=== PATIENT | male | born 2000 | race African-American/Black ===

== ENCOUNTER 2023-05-27 16:30 | Emergency (ER) | payer MEDICARE ==
[~2023-05-27] VITALS: Ht 185.4 cm; Wt 59.7 kg
[2023-05-27 16:49] VITALS: BP 120/61; PULSE 83; RESP 16; TEMP 98.1; O2SAT 100
== END 2023-05-27 19:49 | disposition left against medical advice (07) ==
LOC: ER 16:30
DX: Z53.21 Procedure and treatment not carried out due to patient leaving prior to being seen by health care provider (principal); I49.9 Cardiac arrhythmia, unspecified
CPT/HCPCS: 71045; 93005; 99281

== ENCOUNTER 2023-05-28 06:48 | Emergency (ER) | payer MEDICARE ==
[~2023-05-28] VITALS: Ht 182.9 cm; Wt 72.0 kg
[2023-05-28 06:54] VITALS: O2SAT 99
[2023-05-28 08:21] LABS: BASOPHILS % 1.3 % (0.0-2.0); EOSINOPHILS % 0.1 % (0.0-5.0); HEMATOCRIT. 31.1 % (42.0-52.0); HEMOGLOBIN. 11.1 g/dL (14.0-18.0); LYMPHOCYTES % 17.7 % (20.0-50.0); MEAN CORPUSCULAR HEMOGLOBIN 34.2 pg (28.0-32.0); MEAN CORPUSCULAR HGB CONC 35.8 g/dL (31.0-37.0); MEAN CORPUSCULAR VOLUME 95.6 fL (80.0-94.0); MEAN PLATELET VOLUME 8.1 fl (7.4-10.4); MONOCYTES % 10.1 % (2.0-8.0); NEUTROPHILS % 70.8 % (40.0-76.0); PLATELET 379 x1000/uL (130-400); RED BLOOD CELL COUNT 3.25 mill/uL (4.7-6.1); RED CELL DISTRIBUTION WIDTH 18.1 % (11.6-14.6); WHITE BLOOD COUNT 15.7 x1000/uL (4.5-11.0)
[2023-05-28 09:09] LABS: ALANINE AMINOTRANSFERASE < 7 IU/L (10-49); ASPARTATE AMINOTRANSFERASE 21 IU/L (<34); CALCIUM 10.3 mg/dL (8.7-10.4); CARBON DIOXIDE 24 mEq/L (21-32); CHLORIDE 106 mEq/L (98-107); CREATININE 0.6 mg/dL (0.6-1.3); GLUCOSE 101 mg/dL (70-105); POTASSIUM 3.6 mEq/L (3.5-5.1); SODIUM 139 mEq/L (136-145); UREA NITROGEN BLOOD 8 mg/dL (9-23)
[2023-05-28 09:13] LABS: ETHANOL BLOOD < 10 mg/dL (<10)
[2023-05-28 11:33] LABS: CLARITY URINE CLEAR (CLEAR); COLOR URINE YELLOW (YELLOW); GLUCOSE URINE NEGATIVE (NEGATIVE); KETONES URINE NEGATIVE (NEGATIVE); LEUKOCYTE ESTERASE URINE NEGATIVE (NEGATIVE); NITRITE URINE NEGATIVE (NEGATIVE); OCCULT BLOOD URINE NEGATIVE (NEGATIVE); PROTEIN URINE NEGATIVE (NEGATIVE); SPECIFIC GRAVITY URINE 1.008 (1.005-1.030)
[2023-05-28 11:35] VITALS: BP 127/64; PULSE 100; RESP 14; TEMP 98.1
[2023-05-28 13:09] LABS: *AMPHETAMINES SCREEN URINE NEGATIVE (NEGATIVE); *BARBITURATES SCREEN URINE NEGATIVE (NEGATIVE); *BENZODIAZEPINES SCREEN URINE NEGATIVE (NEGATIVE); *COCAINE SCREEN URINE NEGATIVE (NEGATIVE); CANNABINOID URINE SCREEN PRESUMPTIVE POSITIVE (NEGATIVE); ECSTASY MDMA SCREEN URINE NEGATIVE (NEGATIVE); METHADONE URINE SCREEN Neg (NEGATIVE); OPIATES URINE SCREEN NEGATIVE (NEGATIVE); PHENCYCLIDINE URINE SCREEN NEGATIVE (NEGATIVE)
== END 2023-05-28 11:42 ==
LOC: ER 06:48
DX: R56.9 Unspecified convulsions (principal); F41.9 Anxiety disorder, unspecified; J45.909 Unspecified asthma, uncomplicated; Z90.49 Acquired absence of other specified parts of digestive tract
CPT/HCPCS: 36415; 80053; 80305; 80320; 81003; 82962; 85025; 99283; G0480

== ENCOUNTER 2024-07-20 17:19 | Emergency (ER) | payer OTHER, MEDICARE, MEDICAID ==
[~2024-07-20] VITALS: Ht 177.8 cm; Wt 70.0 kg
[~2024-07-20 17:19] MED LIST: P20 MT
[2024-07-20 17:20] VITALS: BP 113/63; PULSE 99; RESP 18; TEMP 36.7; O2SAT 99
[2024-07-20 21:18] LABS: CLARITY URINE CLEAR (CLEAR); COLOR URINE YELLOW (YELLOW); GLUCOSE URINE NEGATIVE (NEGATIVE); KETONES URINE NEGATIVE (NEGATIVE); LEUKOCYTE ESTERASE URINE NEGATIVE (NEGATIVE); NITRITE URINE NEGATIVE (NEGATIVE); OCCULT BLOOD URINE NEGATIVE (NEGATIVE); PROTEIN URINE TRACE (NEGATIVE); SPECIFIC GRAVITY URINE 1.015 (1.005-1.030)
[2024-07-20 21:45] LABS: BACTERIA URINE TRACE
[2024-07-20 21:46] LABS: RBC URINE NONE SEEN /hpf (0-2); SQUAMOUS EPITHELIAL CELL URINE RARE /lpf (RARE/1+); WBC URINE NONE SEEN /hpf (0-2)
== END 2024-07-20 22:09 | disposition home or self-care (01) ==
LOC: ER 17:19
DX: R56.9 Unspecified convulsions (principal); Z86.73 Personal history of transient ischemic attack (TIA), and cerebral infarction without residual deficits; F41.9 Anxiety disorder, unspecified
CPT/HCPCS: 81003; 99283

== ENCOUNTER 2025-04-18 07:15 | Inpatient (IN) | payer OTHER, MEDICARE, MEDICAID ==
[~2025-04-18] VITALS: Ht 171.4 cm; Wt 59.5 kg
[2025-04-18 07:30] VITALS: O2SAT 99
[2025-04-18] MEDS: MIDAZOLAM HCL 2 MG/2 ML VIAL IM ONE (07:30)
[2025-04-18] MEDS: HALOPERIDOL LACTATE 5MG/ML VIAL IM ONE (07:30)
[2025-04-18] MEDS: OLANZAPINE 5MG TABLET ODT PO SCH (10:30)
[2025-04-18 12:45] LABS: CLARITY URINE CLEAR (CLEAR); COLOR URINE YELLOW (YELLOW); GLUCOSE URINE NEGATIVE (NEGATIVE); KETONES URINE NEGATIVE (NEGATIVE); LEUKOCYTE ESTERASE URINE NEGATIVE (NEGATIVE); NITRITE URINE NEGATIVE (NEGATIVE); OCCULT BLOOD URINE NEGATIVE (NEGATIVE); PH URINE 6.5 (4.5-8.0); PROTEIN URINE TRACE (NEGATIVE); SPECIFIC GRAVITY URINE 1.011 (1.005-1.030); UROBILINOGEN URINE 1.0 E.U./dL (0.2-1.0)
[2025-04-18 12:53] LABS: MEAN PLATELET VOLUME 8.6 fl (7.4-10.4); PLATELET 418 x1000/uL (130-400); RED BLOOD CELL COUNT 2.02 mill/uL (4.7-6.1); RED CELL DISTRIBUTION WIDTH 23.5 % (11.6-14.6)
[2025-04-18 13:03] LABS: HEMATOCRIT. 17.8 % (42.0-52.0); HEMOGLOBIN. 6.1 g/dL (14.0-18.0)
[2025-04-18 13:07] LABS: CREATININE 0.6 mg/dL (0.6-1.3); UREA NITROGEN BLOOD 12 mg/dL (9-23)
[2025-04-18 13:22] LABS: SQUAMOUS EPITHELIAL CELL URINE RARE /lpf (RARE/1+)
[2025-04-18 13:24] LABS: BACTERIA URINE NONE SEEN; RBC URINE NONE SEEN /hpf (0-2); WBC URINE 0-2 /hpf (0-2)
[2025-04-18 17:19] LABS: BAND% 1.0 % (1.0-6.0); LYMPHOCYTES % MANUAL 22.0 % (20.0-50.0); MONOCYTES % MANUAL 10.0 % (2.0-8.0); NEUTROPHILS % MANUAL 67.0 % (45.0-75.0); NUCLEATED RED BLOOD CELLS 2 /100 WBC; PLATELET ESTIMATE SLIGHTLY INCREASED
[2025-04-18 23:34] LABS: PLATELET 426 x1000/uL (130-400); RED BLOOD CELL COUNT 2.42 mill/uL (4.7-6.1); RED CELL DISTRIBUTION WIDTH 21.6 % (11.6-14.6)
[2025-04-19] MEDS ORDERED: ACETAMINOPHEN 325MG TABLET PO PRN
[2025-04-19] MEDS ORDERED: LORAZEPAM 2MG/ML UD SYRINGE IV PRN (00:30)
[2025-04-19] MEDS: SODIUM CHLORIDE 0.9% 1,000 ML IV SCH (01:28)
[2025-04-19 03:15] VITALS: BP 103/51; PULSE 83; RESP 18; TEMP 36.696
[2025-04-19 08:00] VITALS: BP 109/59; PULSE 77; RESP 18; TEMP 36.6; O2SAT 100
[2025-04-19] MEDS: PANTOPRAZOLE SODIUM 40 MG/VIAL IV SCH (09:23)
[2025-04-19 10:18] LABS: *AMPHETAMINES SCREEN URINE NEGATIVE (NEGATIVE)
[2025-04-19 10:19] LABS: *BARBITURATES SCREEN URINE NEGATIVE (NEGATIVE); *BENZODIAZEPINES SCREEN URINE PRESUMPTIVE POSITIVE (NEGATIVE); *COCAINE SCREEN URINE NEGATIVE (NEGATIVE); CANNABINOID URINE SCREEN PRESUMPTIVE POSITIVE (NEGATIVE); ECSTASY MDMA SCREEN URINE NEGATIVE (NEGATIVE); METHADONE URINE SCREEN NEGATIVE (NEGATIVE); OPIATES URINE SCREEN NEGATIVE (NEGATIVE); PHENCYCLIDINE URINE SCREEN NEGATIVE (NEGATIVE)
[2025-04-19 12:00] VITALS: BP 100/59; PULSE 74; RESP 18; TEMP 36.7; O2SAT 100
[2025-04-19 16:00] VITALS: BP 104/53; PULSE 59; RESP 18; TEMP 36.8; O2SAT 100
[2025-04-19] MEDS: ACETAMINOPHEN 325MG TABLET PO PRN (18:30)
[2025-04-19 20:00] VITALS: BP 105/58; PULSE 64; RESP 18; TEMP 36.8; O2SAT 98
[2025-04-20] VITALS: BP 133/75; PULSE 72; RESP 18; TEMP 36.4; O2SAT 100
[2025-04-20] MEDS: KETOROLAC 30MG/ML VIAL IV NR (00:45)
[2025-04-20 04:00] VITALS: BP 108/54; PULSE 68; RESP 18; TEMP 36.5; O2SAT 100
[2025-04-20 08:00] VITALS: BP 132/63; PULSE 70; RESP 18; TEMP 36.6; O2SAT 100
[2025-04-20 12:00] VITALS: BP 131/66; PULSE 67; RESP 18; TEMP 36.6; O2SAT 100
[2025-04-20 16:00] VITALS: BP 110/67; PULSE 72; RESP 20; TEMP 36.4; O2SAT 100
[2025-04-20 20:00] VITALS: BP 111/64; PULSE 75; RESP 18; TEMP 36.3; O2SAT 99
[2025-04-21] VITALS: BP 133/75; PULSE 68; RESP 18; TEMP 36.5; O2SAT 100
[2025-04-21 04:00] VITALS: BP 116/82; PULSE 82; RESP 18; TEMP 37.8; O2SAT 100
[2025-04-21] MEDS: KETOROLAC 15MG/ML VIAL IV NR (06:48)
[2025-04-21 08:00] VITALS: BP 104/61; PULSE 77; RESP 18; TEMP 36.8; O2SAT 100
[2025-04-21] MEDS ORDERED: OLAN5TAB74 PO (11:28)
[2025-04-21 12:54] VITALS: BP 112/59; PULSE 78; RESP 18; TEMP 98.7
== END 2025-04-21 14:05 | disposition home or self-care (01) | DRG 917 ==
LOC: ER 07:31 → 6EST 23:09 → EDBEDREQ 23:17 → EDBEDREQTM 23:17 → ENRESERV 04-19 02:26
PROVIDERS: ADMIT Hospitalist; ATTEND Hospitalist
PROC: 30233N1 Transfusion of Nonautologous Red Blood Cells into Peripheral Vein, Percutaneous Approach (ICD-10-PCS; principal; 2025-04-18)
PROC: GZ56ZZZ Individual Psychotherapy, Supportive (ICD-10-PCS; 2025-04-21)
DX: T50.991A Poisoning by other drugs, medicaments and biological substances, accidental (unintentional), initial encounter (principal); G92.9 Unspecified toxic encephalopathy; R65.10 Systemic inflammatory response syndrome (SIRS) of non-infectious origin without acute organ dysfunction; F15.959 Other stimulant use, unspecified with stimulant-induced psychotic disorder, unspecified; G40.909 Epilepsy, unspecified, not intractable, without status epilepticus; F19.10 Other psychoactive substance abuse, uncomplicated; R45.851 Suicidal ideations; D57.1 Sickle-cell disease without crisis; F20.9 Schizophrenia, unspecified; D72.829 Elevated white blood cell count, unspecified; F31.9 Bipolar disorder, unspecified; Z96.642 Presence of left artificial hip joint; Z20.822 Contact with and (suspected) exposure to COVID-19; F41.9 Anxiety disorder, unspecified; Y92.89 Other specified places as the place of occurrence of the external cause; Z86.73 Personal history of transient ischemic attack (TIA), and cerebral infarction without residual deficits; Z87.442 Personal history of urinary calculi; Z91.199 Patient's noncompliance with other medical treatment and regimen due to unspecified reason
CPT/HCPCS: 36415; 36430; 80048; 80305; 80307; 80320; 80329; 81003; 85025; 85027; 86850; 86900; 86920; 87426; 93005; 96372; 99291; J1630; J1885; J2250; J2470; P9016; G0480